=== PATIENT | female | born 1965 | race American Indian/Alaskan Native ===

== ENCOUNTER 2017-11-02 08:51 | Day surgery (SDC) | payer MEDICAID ==
[2017-11-02 09:13] VITALS: BMI 40.2
[2017-11-02] MEDS ORDERED: Lactated Ringer's 500 ML IV SCH (09:45)
[2017-11-02] MEDS ORDERED: Propofol 10 mg/ml Inj (20 ML) ONE ×3 (09:46→11:10)
[2017-11-02] MEDS ORDERED: Lactated Ringer's 500 ML IV ONE ×2 (09:59→10:50)
[2017-11-02 11:31] VITALS: TEMP 97.6
[2017-11-02 11:44] VITALS: O2SAT 100
[2017-11-02 13:55] VITALS: BP 112/67; PULSE 69; RESP 12
== END 2017-11-02 12:46 | disposition home or self-care (01) ==
LOC: C.ENDO 08:51
PROVIDERS: ATTEND Internal Medicine Gastroenterology
DX: A04.8 Other specified bacterial intestinal infections (principal); Z12.11 Encounter for screening for malignant neoplasm of colon; D12.0 Benign neoplasm of cecum; D12.7 Benign neoplasm of rectosigmoid junction; K64.8 Other hemorrhoids; R10.13 Epigastric pain; K44.9 Diaphragmatic hernia without obstruction or gangrene
CPT/HCPCS: 43235; 45380; 84703; 88305; J2704; J3010; J7120